=== PATIENT | female | born 1990 | race Caucasian/White ===

== ENCOUNTER 2019-05-03 13:47 | Emergency (ER) | payer OTHER, SELFPAY ==
[2019-05-03 13:49] VITALS: BP 120/77; PULSE 91; RESP 16; TEMP 37; O2SAT 98; BMI 29.2
--- NOTE | 2019-05-03 16:06 | ED_ITS ---
HPI - Wound/Laceration General: Chief Complaint: Wound/Laceration Stated Complaint: Left hand stab Time Seen by Provider: 05/03/19 15:57 Source: patient Mode of arrival: ambulatory Limitations: no limitations History of Present Illness: HPI narrative: Patient was stuck in the finger by a blood glucose monitoring needle. 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 Patient denies any medical problems but is concerned for transmission of illness. Review of Systems General: Reports: 10 or more systems reviewed and unremarkable except in HPI and below Skin/Breast: Reports: other (needle stick third left finger) PFSH ED PFSH: Statuses (acute, chronic, etc) shown below reflect problem list status as previously entered and may not be historically accurate Social History Smoking and tobacco status: never smoked Physical Exam Const: COMMON NORMALS: no apparent distress and oriented x3 GENERAL APPEARANCE: cooperative HENMT: COMMON NORMALS: normocephalic, external ears normal, EAC's normal, TM's normal bilaterally and external nose normal HEAD & SCALP: normal to inspection and normocephalic FACE & SINUS: normal facial exam NOSE: external nose normal GENERAL EAR: hearing not grossly impaired EXTERNAL EAR: Yes external ears normal EXTERNAL AUDITORY CANAL: EAC's normal TYMPANIC MEMBRANE: TM's normal bilaterally MOUTH: oral and palatal mucosa normal THROAT: posterior oropharynx normal Eye: COMMON NORMALS: PERRL and EOMs intact bilaterally PUPIL: Yes PERRL Neck/C-Spine: COMMON NORMALS: full ROM and no lymphadenopathy Lymph: LYMPHATIC: no lymphedema noted Chest: COMMONS NORMALS: inspection of chest normal and palpation of chest normal Resp: COMMON NORMALS: normal respiratory effort and clear to auscultation bilaterally AUSCULTATION: clear to auscultation bilaterally Cardio: COMMON NORMALS: regular rate and regular rhythm RATE: regular rate RHYTHM: regular rhythm GI: COMMON NORMALS: normal to inspection, nondistended, normoactive bowel sounds and non-tender : COMMON NORMALS: Yes no CVA tenderness BLADDER/KIDNEY EXAM: Yes no CVA tenderness Back/Pelvis: COMMON NORMALS: no CVA tenderness and thoracic and lumbar spine normal to inspection Extremity: COMMON NORMALS: normal to inspection GENERAL: No edema Neuro: COMMON NORMALS: oriented x3, moves all extremities and no focal motor deficits Psych: COMMON NORMALS: mental status grossly normal and cooperative Skin: COMMON NORMALS: no rashes or lesions noted NARRATIVE SKIN EXAM: puncture wound third left finger GENERAL SKIN EXAM: no rashes or lesions noted Course Vital Signs: Vital signs: Vital Signs Temperature 98.6 F 05/03/19 13:49 Pulse Rate 91 05/03/19 13:49 Respiratory Rate 16 05/03/19 13:49 Blood Pressure 120/77 05/03/19 13:49 Pulse Oximetry 98 05/03/19 13:49 MDM - Wound/Laceration MDM Narrative: Medical decision making narrative: Patient comes in for concerns of injury to the third finger on the left hand. Patient reports needlestick. Exam notes a small puncture wound to the third finger on the left hand. Good range of motion no obvious foreign body or injury. Differential diagnosis includes need for postexposure prophylaxis for HIV, blood-borne pathogen exposure, wound infection, foreign body. Laboratory values were insignificant. Written prescriptions for recommended postexposure prophylaxis. Recommend follow-up with primary care in 1 month. Reassured patient minimal risk is noted for developing infection but recommended repeat testing at 6 months in 1 year. Patient reports understanding agreed to plan. Lab Data: Labs: Lab Results 05/03/19 05/03/19 Range/Units 16:19 16:19 WBC 7.8 (4.0-10.0) 10^3/ uL RBC 4.95 (4.1-5.3) 10^6/u L Hgb 14.9 (11.5-15.3) g/dL Hct 43.5 (37.0-47.0) % MCV 87.9 (81-99) fL MCH 30.1 (28.0-34.0) pg MCHC 34.3 (30.0-36.0) g/dL RDW 11.6 L (12.1-15.1) % Plt Count 286 (130-400) 10^3/c mm MPV 10.1 (7.4-10.4) fL Neut % (Auto) 63.8 % Lymph % (Auto) 30.1 % Dixie % (Auto) 4.7 % Eos % (Auto) 0.6 % Baso % (Auto) 0.5 % Neut # (Auto) 5.0 (1.8-7.7) 10^3/u L Lymph # (Auto) 2.4 (0.8-4.8) 10^3/u L Dixie # (Auto) 0.4 (0.2-0.9) 10^3/u L Eos # (Auto) 0.1 (0.0-0.8) 10^3/u L Baso # (Auto) 0.0 (0.0-0.1) 10^3/u L Nucleated RBC % (a uto) 0 % Nucleated RBCs # 0.0 /100WBC Sodium 138 (136-145) mmol/L Potassium 3.7 (3.5-5.1) mmol/L Chloride 100 (98-107) mmol/L Carbon Dioxide 24 (22-29) mmol/L Anion Gap 17.7 (5-19) BUN 11 (6-20) mg/dL Creatinine 0.7 (0.5-0.9) mg/dL GFR Calculation 99.6 (90-130) mL/min Glucose 84 (74-109) mg/dL Calcium 10.4 (8.5-10.5) mg/dL Total Bilirubin 0.6 (0.15-1.2) mg/dL AST 26 (0-32) U/L ALT 18 (0-33) U/L Alkaline Phosphata se 66 (35-105) IU/L Total Protein 7.9 (6.6-8.7) g/dL Albumin 5.0 (3.5-5.2) g/dL Globulin 2.9 (1.3-4.6) g/dL Discharge Plan Discharge Patient Disposition: Home, Self-Care Clinical Impression: Needle stick injury of finger Condition: Stable Prescriptions: New emtricitabine-tenofovir (TDF) 200-300 mg tablet 1 tab PO DAILY Qty: 28 RF: 0 raltegravir 400 mg tablet 400 mg PO BID Qty: 56 RF: 0 Discharge Orders: Discharge Order (Routine); Ordered 05/03/19 Ordered By: Jesus Chung Referrals: Dena Fernandez, CERTIFIED PHARMACY TECH-C [Primary Care Provider] - Discharge Diet: Usual diet Discharge Activity: Resume usual activity Patient Instructions: Needle Stick Injuries (ED) Activity Restrictions/Additional Instructions: Monitor wound for infection Drink plenty of water with medications Follow-up with primary care in one month for recheck on labs You will need repeat testing of Hepatitis C and HIV at 6 months and one year Return to ER for any concerns Coding Level of Care Code ED [employer] Package Symbol Stamper for Chg Fwd Exam Problem Focused
--- NOTE | 2019-05-03 16:17 | PC.NURSE ---
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 Patient was unsure where the needle came from.
[2019-05-03 16:32] LABS: Basophils % 0.5 %; Eosinophils # 0.1 10^3/uL (0.0-0.8); Eosinophils % 0.6 %; Hematocrit 43.5 % (37.0-47.0); Hemoglobin 14.9 g/dL (11.5-15.3); Lymphocytes # 2.4 10^3/uL (0.8-4.8); Lymphocytes % 30.1 %; Mean Corpuscular HGB Conc 34.3 g/dL (30.0-36.0); Mean Corpuscular Hemoglobin 30.1 pg (28.0-34.0); Mean Corpuscular Volume 87.9 fL (81-99); Mean Platelet Volume 10.1 fL (7.4-10.4); Monocytes # 0.4 10^3/uL (0.2-0.9); Monocytes % 4.7 %; Neutrophils % 63.8 %; Nucleated Red Blood Cells % 0 %; Platelet Count 286 10^3/cmm (130-400); Red Blood Count 4.95 10^6/uL (4.1-5.3); Red Cell Distribution Width 11.6 % (12.1-15.1); White Blood Count 7.8 10^3/uL (4.0-10.0)
[2019-05-03 16:49] LABS: Alanine Aminotransferase 18 U/L (0-33); Alkaline Phosphatase 66 IU/L (35-105); Anion Gap 17.7 (5-19); Aspartate Amino Transferase 26 U/L (0-32); Blood Urea Nitrogen 11 mg/dL (6-20); Calcium 10.4 mg/dL (8.5-10.5); Carbon Dioxide 24 mmol/L (22-29); Chloride 100 mmol/L (98-107); Globulin 2.9 g/dL (1.3-4.6); Glomerular Filtration Rate 99.6 mL/min (90-130); Glucose 84 mg/dL (74-109); Potassium 3.7 mmol/L (3.5-5.1); Sodium 138 mmol/L (136-145); Total Bilirubin 0.6 mg/dL (0.15-1.2); Total Protein 7.9 g/dL (6.6-8.7)
[2019-05-03 17:18] LABS: HIV 1 & 2 Antibody Non-Reactive (Non-Reactiv); HIV 1 & 2 Antigen Non-Reactive (Non-Reactiv)
[2019-05-03 17:24] LABS: Hepatitis A Antibody IgM. Non-Reactive (Nonreactive); Hepatitis B Core IgM Non-Reactive (Nonreactive); Hepatitis B Surface Antigen. Non-Reactive (Nonreactive); Hepatitis C Virus Antibody Non-Reactive (Nonreactive)
== END 2019-05-03 17:26 | disposition home or self-care (01) ==
LOC: ER 16:09
PROVIDERS: Emergency Provider Nurse Practitioner Family; Family Provider Nurse Practitioner; PCP Nurse Practitioner
DX: S61.233A Puncture wound without foreign body of left middle finger without damage to nail, initial encounter (principal); W46.0XXA Contact with hypodermic needle, initial encounter; Y92.511 Restaurant or cafe as the place of occurrence of the external cause
CPT/HCPCS: 36415; 80053; 80074; 85025; 87389; 99281

== ENCOUNTER 2020-02-09 02:14 | Emergency (ER) | payer OTHER, SELFPAY ==
[2020-02-09 02:17] VITALS: BP 92/60; PULSE 85; RESP 16; TEMP 36.5; O2SAT 100; BMI 27.4
--- NOTE | 2020-02-09 02:29 | USR_ITS ---
PROCEDURE INFORMATION: Exam: US Pelvis, Transvaginal Exam date and time: 02/09/2020 3:21 AM Age: 29 years old Clinical indication: Pelvic pain TECHNIQUE: Imaging protocol: Real-time transvaginal pelvic ultrasound with image documentation. Transvaginal imaging was used for better evaluation of the endometrium, adnexa, and/or cervix. COMPARISON: CT abdomen pelvis w con* [id number] 01/23/2015 11:17 PM Findings: The uterus measures 8.4 cm in length. There is no visible focal uterine mass. There is no intrauterine fluid. Endometrial thickness is 3.1 mm. Small amount of cul-de-sac fluid. The right ovary measures 31 x 21 x 30 mm, estimated volume 9.9 cc. 42 x 38 x 40 mm cyst involving the right ovary. This cyst is relatively simple in appearance. A physiologic cyst is possible, other etiologies not excluded. As clinically directed, follow up in one to three months may be useful to evaluate for resolution of a physiologic cyst, and to guard against a persistent/enlarging lesion. The left ovary measures 27 x 17 x 27 mm, estimated volume 6.5 cc. The left ovary appears essentially unremarkable. Blood flow detected in each ovary. The urinary bladder was not completely evaluated/imaged at this time. Endovaginal scanning provided better visualization/evaluation of the endometrium and ovaries/adnexal regions, as discussed above. US/US pelvic with transvaginal IMPRESSION: 1. 42 x 38 x 40 mm right ovarian cyst, see above discussion. 2. Small amount of cul-de-sac fluid. 3. Other details discussed above.
--- NOTE | 2020-02-09 02:37 | W.ED.ABDPA2 ---
HPI - Abdominal Pain General: Chief Complaint: Abdominal Pain Stated Complaint: abd pain Time Seen by Provider: 02/09/20 02:23 Source: patient Mode of arrival: ambulatory Limitations: no limitations History of Present Illness: HPI narrative: Leia is a 29-year-old female who comes in complaining of abdominal pain. Abdominal pain is in bilateral lower quadrants and awoke her from sleep. She states the pain feels like menstrual cramps but also like when she has had ovarian cyst in the past. Currently she denies any vaginal bleeding or discharge. She denies any urinary frequency/urgency or dysuria. Patient states that heating pad to her lower abdomen helps some but it does not completely absolve her pain. She has nausea but has not vomited. She denies any change in her bowel habits such as diarrhea or constipation. Patient denies any back pain or flank pain. Other than the heating pad she is unaware of any exacerbating or alleviating factors. She is not tried anything else at home for this. Associated Symptoms: Reports nausea; Denies chills, coffee ground emesis, constipation, GI cramping, diarrhea, dysuria, fever(s), heartburn, hematochezia, hematuria, hematemesis, melena, syncope and vomiting Related Data: Date of Last Menstrual Period: 02/09/20 Review of Systems Const: Denies: fever(s), chills, body aches, fatigue, malaise or diaphoresis Eyes: Denies: change in vision, blurry vision, photophobia, eye discomfort, eye discharge, eye redness or yellow eyes ENMT: Denies: throat pain, odynophagia, hoarseness, swelling of lips/tongue, ear or mastoid pain, ear discharge, change in hearing or nasal discharge Card: Denies: chest pain, palpitations, irregular heart rhythm, edema, lightheadedness, syncope, pre-syncope, dyspnea on exertion or orthopnea Resp: Denies: dyspnea, productive cough, non-productive cough, wheezing, hemoptysis or chest congestion GI: Reports: abdominal pain and nausea; Denies: vomiting, hematemesis, coffee ground emesis, heartburn, diarrhea, constipation, GI cramping, hematochezia or melena : Denies: flank pain, dysuria, urinary frequency, urinary urgency or hematuria Musc: Denies: neck pain, back pain, extremity pain, extremity swelling, joint pain, joint swelling, joint redness, joint warmth or joint stiffness Skin/Breast: Denies: rash, pruritus, erythema, skin pain or skin tenderness Neuro: Denies: headache(s), numbness in extremities, weakness in extremities, sensory changes, lack of coordination, difficulty walking, dizziness, vertigo, confusion, Slurred speech present or seizure-like activity Kareem/Lymph: Denies: easy bruising, easy bleeding, petechiae, purpura or enlarged lymph nodes All/Imm: Denies: urticaria, throat swelling, tongue swelling, facial swelling or acute wheezing PFSH ED PFSH: Medical History Ovarian cyst Surgical History H/O breast augmentation Social History Smoking and tobacco status: never smoked Female Reproductive History: Date of last menstrual period: 02/09/20 Physical Exam Const: COMMON NORMALS: no acute distress, patient oriented x3, no limitations and alert GENERAL APPEARANCE: cooperative HENMT: COMMON NORMALS: normocephalic, atraumatic, external ears normal, EAC's normal and Normal external nose present HEAD & SCALP: normal to inspection, normocephalic and atraumatic FACE & SINUS: normal facial exam and face symmetric NOSE: Normal external nose present and Normal nares present EXTERNAL EAR: Yes external ears normal EXTERNAL AUDITORY CANAL: EAC's normal MOUTH: Normal oral and palatal mucosa present, lip normal and tongue normal Eye: COMMON NORMALS: Equal, round and reactive pupils present and conjunctivae normal GENERAL EYE: appearance normal, both eyes and all related structures ALIGNMENT: Yes alignment normal PERIORBITAL: periorbital findings normal EYELID: eyelids normal CONJUNCTIVA: Yes conjunctivae normal SCLERA: sclerae normal PUPIL: Yes Equal, round and reactive pupils present Neck/C-Spine: COMMON NORMALS: full ROM, no lymphadenopathy, supple, no meningeal signs and no JVD GENERAL: Yes normal visual inspection and Yes trachea midline Chest: COMMONS NORMALS: normal inspection of the chest and normal palpation of entire chest wall Resp: COMMON NORMALS: normal respiratory effort, No retractions, No use of accessory muscles and clear to auscultation bilaterally EFFORT & INSPECTION: Yes able to speak in complete sentences and Yes symmetric chest movement AUSCULTATION: clear to auscultation bilaterally, no crackles, no rales, no rhonchi and no wheezes Cardio: COMMON NORMALS: no JVD, regular rate, regular rhythm, S1 normal heart sound present and S2 normal heart sound present RATE: regular rate RHYTHM: regular rhythm HEART SOUNDS: S1 normal heart sound present, S2 normal heart sound present, no click, no gallops, no murmurs and no rubs GI: COMMON NORMALS: Soft to palpation and No hepatosplenomegaly present PALPATION: Yes Soft to palpation, Yes Tenderness to palpation present (GI) (Mild in bilateral lower quadrants without rebound or guarding.), No Guarding due to palpation present (GI), No Rigid due to palpation, Yes No hepatosplenomegaly present, No Hernia present, No Palpable mass present and No Pulsatile mass present : COMMON NORMALS: Yes no CVA tenderness BLADDER/KIDNEY EXAM: Yes no CVA tenderness EXTERNAL FEMALE EXAM: No Hernia present Back/Pelvis: COMMON NORMALS: no CVA tenderness, thoracic and lumbar spine normal to inspection, no thoracic nor lumbar tenderness and thoraco-lumbar ROM normal Extremity: COMMON NORMALS: normal to inspection, full ROM, capillary refill normal, no joint enlargement, no clubbing, cyanosis or edema and no calf tenderness Neuro: COMMON NORMALS: patient oriented x3, CN's II-XII intact bilaterally, moves all extremities, no focal motor deficits and no sensory deficits noted SENSORIUM/ORIENTATION: Yes alert MENINGEAL SIGNS: Yes no meningeal signs SPEECH: speech normal Psych: COMMON NORMALS: mental status grossly normal, Normal thought process present, cooperative, normal affect, speech normal and activity/motor behavior normal SPEECH: Yes normal speech THOUGHT PROCESS: Normal thought process present Skin: COMMON NORMALS: no rashes or lesions noted, turgor normal, no jaundice, no petechiae and no mottling GENERAL SKIN EXAM: no rashes or lesions noted and turgor normal Course Vital Signs: Vital signs: Vital Signs Temperature 97.7 F 02/09/20 02:17 Pulse Rate 86 02/09/20 02:46 Respiratory Rate 16 02/09/20 02:46 Blood Pressure 116/70 02/09/20 02:46 Pulse Oximetry 100 02/09/20 02:46 MDM - Abdominal Pain MDM Narrative: Medical decision making narrative: Leia is a very nice 29-year-old female who comes in complaining of bilateral lower quadrant abdominal pain that awoke her from sleep. She states the pain feels like menstrual cramps but is more focal on the left side. Her labs are unremarkable and she is not . This rules out ectopic . Patient has no gastrointestinal symptoms other than nausea. Patient's ultrasound reveals a cyst on the right ovary and findings consistent with a ruptured cyst with free fluid. Patient is not having any vaginal bleeding or discharge. She refuses a pelvic exam at this time. I have offered a pelvic exam as well as a CT scan of the abdomen and pelvis to definitively rule out any other pathology including appendicitis but she declines. She feeling much better after pain medicine and she does understand that just because her pain is gone that that does not rule out a serious even life-threatening cause but nonetheless she declines. She states that she is fairly confident this is what is causing her pain is a ruptured cyst that she is had a before. She does agree to return if her symptoms change or worsen but at this time she is doing better she would like to be discharged. Differential Diagnosis: Differential diagnosis abdominal pain: Likely abdominal pain, acute appendicitis, calculus of kidney, constipation, diverticulitis, endometriosis, gastroenteritis, pancreatitis and small bowel obstruction Lab Data: Attestation: I reviewed the patient's lab results. Labs: Lab Results 02/09/20 02/09/20 02/09/20 Range/Units 02:45 02:45 02:45 WBC 10.0 (4.0-10.0) 10^3/ uL RBC 4.57 (4.1-5.3) 10^6/u L Hgb 14.2 (11.5-15.3) g/dL Hct 41.9 (37.0-47.0) % MCV 91.7 (81-99) fL MCH 31.1 (28.0-34.0) pg MCHC 33.9 (30.0-36.0) g/dL RDW 11.8 L (12.1-15.1) % Plt Count 231 (130-400) 10^3/c mm MPV 10.0 (7.4-10.4) fL Neut % (Auto) 69.7 % Lymph % (Auto) 21.8 % Worth % (Auto) 6.5 % Eos % (Auto) 1.5 % Baso % (Auto) 0.3 % Neut # (Auto) 7.00 (1.8-7.7) 10^3/u L Lymph # (Auto) 2.2 (0.8-4.8) 10^3/u L Worth # (Auto) 0.7 (0.2-0.9) 10^3/u L Eos # (Auto) 0.2 (0.0-0.8) 10^3/u L Baso # (Auto) 0.0 (0.0-0.1) 10^3/u L Nucleated RBC % (a uto) 0 % Nucleated RBCs # 0.0 /100WBC Sodium 140 (136-145) mmol/L Potassium 3.5 (3.5-5.1) mmol/L Chloride 105 (98-107) mmol/L Carbon Dioxide 25 (22-29) mmol/L Anion Gap 13.5 (5-19) BUN 13 (6-20) mg/dL Creatinine 0.8 (0.5-0.9) mg/dL GFR Calculation 84.8 L (90-130) mL/min Glucose 106 (65-115) mg/dL Calculated Osmolal ity 291 (285-295) mOsm/k g Calcium 9.3 (8.5-10.5) mg/dL Total Bilirubin 0.3 (0.15-1.2) mg/dL AST 17 (0-32) U/L ALT 14 (0-33) U/L Alkaline Phosphata se 72 (35-105) IU/L Total Protein 7.0 (6.6-8.7) g/dL Albumin 4.6 (3.5-5.2) g/dL Globulin 2.4 (1.3-4.6) g/dL Lipase 21 (13-60) U/L HCG, Qual Negative (Negative) Urine Color (Yellow) Urine Appearance (CLEAR) Urine pH (5-7) Ur Specific Gravit y (1.005-1.030) Urine Protein (Negative) Urine Glucose (UA) (Normal) Urine Ketones (Negative) Urine Blood (Negative) Urine Nitrate (Negative) Urine Bilirubin (Negative) Urine Urobilinogen (Negative) mg/dL Ur Leukocyte Bernice ase (Negative) Urine RBC (0-2) /hpf Urine WBC (0-5) /hpf Ur Squamous Epith Cells (0-5) /hpf Amorphous Sediment Urine Bacteria (NONE) /hpf Urine Mucus /hpf 02/09/20 Range/Units 02:45 WBC (4.0-10.0) 10^3/ uL RBC (4.1-5.3) 10^6/u L Hgb (11.5-15.3) g/dL Hct (37.0-47.0) % MCV (81-99) fL MCH (28.0-34.0) pg MCHC (30.0-36.0) g/dL RDW (12.1-15.1) % Plt Count (130-400) 10^3/c mm MPV (7.4-10.4) fL Neut % (Auto) % Lymph % (Auto) % Worth % (Auto) % Eos % (Auto) % Baso % (Auto) % Neut # (Auto) (1.8-7.7) 10^3/u L Lymph # (Auto) (0.8-4.8) 10^3/u L Worth # (Auto) (0.2-0.9) 10^3/u L Eos # (Auto) (0.0-0.8) 10^3/u L Baso # (Auto) (0.0-0.1) 10^3/u L Nucleated RBC % (a uto) % Nucleated RBCs # /100WBC Sodium (136-145) mmol/L Potassium (3.5-5.1) mmol/L Chloride (98-107) mmol/L Carbon Dioxide (22-29) mmol/L Anion Gap (5-19) BUN (6-20) mg/dL Creatinine (0.5-0.9) mg/dL GFR Calculation (90-130) mL/min Glucose (65-115) mg/dL Calculated Osmolal ity (285-295) mOsm/k g Calcium (8.5-10.5) mg/dL Total Bilirubin (0.15-1.2) mg/dL AST (0-32) U/L ALT (0-33) U/L Alkaline Phosphata se (35-105) IU/L Total Protein (6.6-8.7) g/dL Albumin (3.5-5.2) g/dL Globulin (1.3-4.6) g/dL Lipase (13-60) U/L HCG, Qual (Negative) Urine Color Yellow (Yellow) Urine Appearance Sl hazy (CLEAR) Urine pH 5 (5-7) Ur Specific Gravit y 1.030 (1.005-1.030) Urine Protein Neg (Negative) Urine Glucose (UA) Norm (Normal) Urine Ketones 1+ H (Negative) Urine Blood Trace H (Negative) Urine Nitrate Negative (Negative) Urine Bilirubin Neg (Negative) Urine Urobilinogen Norm (Negative) mg/dL Ur Leukocyte Bernice ase Negative (Negative) Urine RBC 0-4 H (0-2) /hpf Urine WBC 0-4 H (0-5) /hpf Ur Squamous Epith Cells 5-10 H (0-5) /hpf Amorphous Sediment Not Reportable Urine Bacteria 1+ H (NONE) /hpf Urine Mucus 2+ /hpf Imaging Data ^: US: My impression: Pelvic ultrasound, tech interpretation -4 mm cyst on right ovary. Good blood flow bilateral with no evidence of torsion. Small amount of free fluid primary in the left side consistent with a ruptured cyst. Otherwise unremarkable. No tubo-ovarian abscess. Discharge Plan Discharge Patient Disposition: Home Clinical Impression: Ovarian cyst Qualifiers: Laterality: unspecified laterality Qualified Code(s): N83.209 - Unspecified ovarian cyst, unspecified side Condition: Stable Prescriptions: New ibuprofen 800 mg tablet 800 mg PO TID PRN (Reason: pain) Qty: 30 RF: 0 No Action emtricitabine-tenofovir (TDF) 200-300 mg tablet 1 tab PO DAILY Qty: 28 RF: 0 raltegravir 400 mg tablet 400 mg PO BID Qty: 56 RF: 0 Discharge Orders: Discharge Order (Routine); Ordered 02/09/20 Ordered By: Tiara Montejo Referrals: Dena Fernandez FNP-C [Primary Care Provider] - 1-3 days Jeyson Saavedra MD [Physician] - 1-3 days Discharge Diet: Advance as tolerated Discharge Activity: Increase activity as tolerated Patient Instructions: Ovarian Cyst (ED), Abdominal Pain (ED) Activity Restrictions/Additional Instructions: Please return to the ER immediately for any of the signs or symptoms listed on your discharge instruction sheets, worsening/changing of your symptoms, you are not getting better as quickly as expected, or for ANY other cause or concerns. You have declined CT scan to rule out appendicitis or other problem causing your pain. If you change your mind, your pain worsens/changes or you have any other complaints please return to the ER for recheck. Follow-up with your doctor or with Dr. Saavedar for recheck and further evaluation and care. Coding Level of Care Code ED Regulatory Compliance Officer for Chg Fwd Exam Comprehensive
[2020-02-09 02:46] VITALS: BP 116/70; PULSE 86; RESP 16; RESP 18; O2SAT 100
[2020-02-09] MEDS: sodium chloride 0.9% 1,000 ML 999 ML IV (02:46)
[2020-02-09] MEDS: ondansetron 2 mg/ML SDV 2 mL 4 MG IVP (02:46)
[2020-02-09] MEDS: HYDROmorphone 1 mg/mL INJ 1 mL 0.5 MG IVP (02:46)
[2020-02-09 03:02] LABS: Basophils % 0.3 %; Eosinophils # 0.2 10^3/uL (0.0-0.8); Eosinophils % 1.5 %; Hematocrit 41.9 % (37.0-47.0); Hemoglobin 14.2 g/dL (11.5-15.3); Lymphocytes # 2.2 10^3/uL (0.8-4.8); Lymphocytes % 21.8 %; Mean Corpuscular HGB Conc 33.9 g/dL (30.0-36.0); Mean Corpuscular Hemoglobin 31.1 pg (28.0-34.0); Mean Corpuscular Volume 91.7 fL (81-99); Monocytes # 0.7 10^3/uL (0.2-0.9); Monocytes % 6.5 %; Neutrophils % 69.7 %; Nucleated Red Blood Cells % 0 %; Platelet Count 231 10^3/cmm (130-400); Red Blood Count 4.57 10^6/uL (4.1-5.3); Red Cell Distribution Width 11.8 % (12.1-15.1)
[2020-02-09 03:05] LABS: Add Urine Microscopic? YES; Bilirubin Urine Neg (Negative); Blood Urine Trace (Negative); Glucose Urine UA Norm (Normal); Ketones Urine 1+ (Negative); Leukocyte Esterase Urine Negative (Negative); Nitrate Urine Negative (Negative); Protein Urine Neg (Negative); Urine Appearance SL Hazy (CLEAR); Urine Color Yellow (Yellow); Urobilinogen Urine Norm (Negative); pH Urine 5 (5-7)
[2020-02-09 03:13] LABS: Add Urine Culture? No; Bacteria Urine 1+ /hpf; Mucus Urine 2+ /hpf; RBC Urine 0-4 /hpf (0-2); WBC Urine 0-4 /hpf (0-5)
[2020-02-09 03:14] LABS: HCG, Serum Qual Negative (Negative)
[2020-02-09 03:22] LABS: Alanine Aminotransferase 14 U/L (0-33); Albumin Level 4.6 g/dL (3.5-5.2); Alkaline Phosphatase 72 IU/L (35-105); Aspartate Amino Transferase 17 U/L (0-32); Blood Urea Nitrogen 13 mg/dL (6-20); Calcium 9.3 mg/dL (8.5-10.5); Carbon Dioxide 25 mmol/L (22-29); Chloride 105 mmol/L (98-107); Globulin 2.4 g/dL (1.3-4.6); Glomerular Filtration Rate 84.8 mL/min (90-130); Glucose 106 mg/dL (65-115); Lipase 21 U/L (13-60); Osmolality Calculated 291 mOsm/kg (285-295); Sodium 140 mmol/L (136-145); Total Bilirubin 0.3 mg/dL (0.15-1.2)
[2020-02-09 03:23] LABS: Anion Gap 13.5 (5-19); Potassium 3.5 mmol/L (3.5-5.1)
[2020-02-09 03:33] VITALS: BP 110/63; PULSE 78; RESP 14; O2SAT 96
[2020-02-09] MEDS: ketorolac 30 mg/mL INJ IVP (03:39)
== END 2020-02-09 03:48 | disposition home or self-care (01) ==
PROVIDERS: Emergency Provider Emergency Medicine; PCP Nurse Practitioner
DX: N83.209 Unspecified ovarian cyst, unspecified side (principal)
CPT/HCPCS: 12345; 76830; 76856; 80053; 81001; 83690; 84703; 85025; 96361; 96374; 96375; 99283; J1170; J1885; J2405; J7030

== ENCOUNTER → 2024-11-01 18:29 | Outpatient (BNVA) | payer MEDICAID, SELFPAY | PROVIDERS: PCP Nurse Practitioner | DX: N89.8 Other specified noninflammatory disorders of vagina (principal) | CPT/HCPCS: 81513; 87481; 87491; 87591; 87661 ==